=== PATIENT | male | born 1980 | race Caucasian/White ===

== ENCOUNTER 2019-06-05 18:51 | Emergency (ER) | payer MEDICAID ==
[~2019-06-05] VITALS: Ht 157.5 cm; Wt 110.2 kg
[2019-06-05 19:43] VITALS: Ht 157.5 cm; Wt 110.2 kg
[2019-06-05 23:06] VITALS: BP 140/87
== END 2019-06-05 23:06 | disposition home or self-care (01) ==
LOC: ED 18:51
DX: M54.5 Low back pain (principal); J40 Bronchitis, not specified as acute or chronic; F17.200 Nicotine dependence, unspecified, uncomplicated
CPT/HCPCS: 99406; J1885